=== PATIENT | male | born 1965 | race Caucasian/White ===

== ENCOUNTER → 2023-12-11 10:11 | Outpatient (REF) | payer BC, SELFPAY ==
[2023-12-11 12:12] LABS: Blood Urea Nitrogen 17 mg/dl (9-20); Calcium 9.4 mg/dl (8.4-10.2); Carbon Dioxide 29 mmol/L (22-30); Chloride 100 mmol/L (98-107); Glucose 99 mg/dl (70-99); Potassium 4.5 mmol/L (3.5-5.1); Sodium 135 mmol/L (135-145); eGFR > 60.00
== END ==
LOC: REG 10:11
PROVIDERS: ATTENDING PHYSICIAN Surgery Vascular Surgery
DX: I71.019 Dissection of thoracic aorta, unspecified (principal)
CPT/HCPCS: 36415; 80048

== ENCOUNTER → 2023-12-25 08:27 | Outpatient (REF) | payer BC, SELFPAY | LOC: RAD 08:27 | PROVIDERS: ATTENDING PHYSICIAN Surgery Vascular Surgery; FAMILY PHYSICIAN Family Medicine | DX: I71.019 Dissection of thoracic aorta, unspecified (principal) | CPT/HCPCS: 71275; 74174; Q9967 ==